=== PATIENT | female | born 1965 | race Hispanic/Latino ===

== ENCOUNTER 2018-10-11 11:15 | Emergency (ER) | payer BC ==
[~2018-10-11] VITALS: Ht 154.9 cm; Wt 65.8 kg
[~2018-10-11 11:15] MED LIST: CIPRO500 MG PO; IBUPROFEN200 MG PO; PANTOPRAZOLE SO40 MG PO; [UNRECOGNIZED DRUG - OTHER] PO
--- OUTSIDE RECORDS SUMMARY | 2018-10-11 11:18 | XMS REPORT | Summary of Care ---
Author Author [facility] [place] Organization [facility] [place] Address Unknown Phone Unavailable Encounter HQ Encntr_ellis(FIN) [id number] Date(s): 09/12/18 - 09/12/18 [facility] [place] [address] [place] [address] [phone] Discharge Disposition: Home or Self Care Attending Physician: Rico De Leon MD Referring Physician: Rico De Leon MD Vital Signs No data available for this section Problem List No data available for this section Allergies, Adverse Reactions, Alerts No data available for this section Medications No data available for this section Results No data available for this section Immunizations No data available for this section Procedures No data available for this section Social History No data available for this section Assessment and Plan No data available for this section
--- OUTSIDE RECORDS SUMMARY | 2018-10-11 11:18 | XMS REPORT | Continuity of Care Document ---
Author Author [facility] Interface Address Unknown Phone Unavailable Problems Problem Status Onset Date Classification Date Reported Comments Source V76.12 - SCREEN MAMMOGRA Active 08/02/2013 FRANK OPIR[facility] [place] Medications Medication Details Route Status Patient Instructions Ordering Provider Order Date Source Allergies, Adverse Reactions, Alerts Substance Category Reaction Severity Reaction type Status Date Reported Comments Source Immunizations Immunization Date Given Site Status Last Updated Comments Source Results Order Name Results Value Reference Range Date Interpretation Comments Source Fine Needle Asp 1st Les Uni US w Clip US Fine Needle Asp 1st Les Uni US w Clip US ULTRASOUND GUIDED FINE NEEDLE ASPIRATION LEFT BREAST WITH MARKING DEVICE INSERTED: 09/12/2018 CLINICAL: /R92.8 Other Abnormal And Inconclusive Findings On Diagnostic Imaging Of Breast. Correlation is made to exams dated: 09/02/2018 ultrasound, 09/02/2018 mammogram, 11/16/2014 mammogram, 08/02/2013 mammogram - [facility], and 02/19/2010 mammogram - [facility]. A fine needle aspiration was performed for the concerning lymph node located in the left axilla. This was described on the previous ultrasound report. The skin was prepped in the usual manner. Local anesthetic was administered to the access site. The abnormality was approached from the lateral aspect. A 21 gauge needle was percutaneously placed into the abnormality under ultrasound guidance. Once the needle was documented to be in the correct location, two specimens were obtained. A clip was inserted into the biopsy cavity. A sterile dressing was applied to the access site. Post procedure imaging demonstrates the clip at the targeted area. The specimens were sent to the laboratory for cytological analysis. IMPRESSION: FINE NEEDLE ASPIRATION MALIGNANT RECOMMENDATION:Fine needle aspiration of the lymph node in the left axilla was successful with no apparent post procedure complications. 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 Cytology results are concordant with imaging findings. A surgical consultation is recommended. These results were discussed with Radha at Dr. Shelley's office on 09/19/18. This exam was interpreted at [id number] for [facility] [place], [place] 15. Professional services are provided by the [facility] of Diagnostic Imaging. Fred Benavidez M.D. cm/:09/19/2018 10:15:11 Casket Trimmer(s): Fang Almaguer [facility] letter sent: Surgical Consult Post Bx 09/12/2018 - - Read by: Ranjeet Fenton MD Dictated Date/time: 09/19/18 10:15 Electronically Signed by: Ranjeet Fenton MD 09/19/18 10:15 FINAL REPORT [facility] [place] Breast BX Uni w Clip Primary Side US Breast BX Uni w Clip Primary Side US ULTRASOUND GUIDED BIOPSY LEFT BREAST WITH MARKING DEVICE INSERTED AND POST MAMMOGRAPHIC IMAGIN09/12/2018 CLINICAL: /R92.8 Other Abnormal And Inconclusive Findings On Diagnostic Imaging Of Breast. PATIENT CONSENT: I discussed the risks, benefits and alternatives for the procedure with the patient. Patient acknowledged understanding and informed written consent was obtained. A time out was performed to confirm patient identification and the location of the lesion. Correlation is made to exams dated: 09/02/2018 ultrasound, 09/02/2018 mammogram, 11/16/2014 mammogram, 08/02/2013 mammogram - [facility], and 02/19/2010 mammogram - [facility]. An ultrasound guided biopsy using real-time ultrasound was performed for the 1.7 cm x 1.3 cm x 1.3 cm indistinct irregular shaped mass located in the left breast at 1 o'clock posterior depth 7 cm from the nipple. The skin was prepped in the usual manner. Local anesthetic was administered to the access site. A small incision was made in the breast. The abnormality was approached from the later al aspect. A 14 gauge biopsy needle was placed adjacent to the abnormality under ultrasound guidance. Once the needle was documented to be in the correct location, four specimens were obtained using an Achieve automated firing device. A ribbon clip was inserted into the biopsy cavity. A skin closure strip was applied to the access site. Post procedure mammographic imaging demonstrates the clip at the targeted area. The specimens were sent to the laboratory for pathological analysis. IMPRESSION: ULTRASOUND GUIDED BIOPSY MALIGNANT RECOMMENDATION:Ultrasound guided biopsy of the 1.7 cm x 1.3 cm x 1.3 cm mass in the left breast at 1 o'clock posterior depth 7 cm from the nipple was successful with no apparent post procedure complications. 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 Pathology results are concordant with imaging findings. A surgical consultation is recommended. These results were d iscussed with Radha at Dr. Shelley's office on 09/19/18. This exam was interpreted at [id number] for FRANK [place], SL 15. Professional services are provided by the [facility] Diagnostic Imaging. Fred Benavidez M.D. cm/:09/19/2018 10:13:40 Casket Trimmer(s): Fang Almaguer [facility] letter sent: Surgical Consult Post Bx 09/12/2018 - - Read by: Ranjeet Fenton MD Dictated Date/time: 09/19/18 10:13 Electronically Signed by: Ranjeet Fenton MD 09/19/18 10:13 FINAL REPORT FRANK CHRISTIAN [place] Breast Complete Uni US Breast Complete Uni US COMPLETE ULTRASOUND OF LEFT BREAST AND AXILLA: 09/02/2018 CLINICAL: /N64.4 Mastodynia. COMPARISON:Comparison is made to exams dated: 09/02/2018 mammogram, 11/16/2014 mammogram, 08/02/2013 mammogram - [facility], and 02/19/2010 mammogram - [facility]. TECHNIQUE: Color flow and real-time ultrasound of the left breast four quadrants and axilla regions were performed on the areas of interest. FINDINGS: There is a 1.7 cm x 1.3 cm x 1.3 cm taller than wide irregular mass in the left breast at 1 o'clock posterior depth 7 cm from the nipple. This irregular mass is hypoechoic. This correlates as palpated and with mammography findings. Color flow imaging demonstrates that there is vascularity present. There are at least 6 abnormal axillary level I nodes with max cortical thickness measuring up to 1.9 cm. There is a single abnormal level II axillary node with cortical thickness measuring 0.5 cm. No lymphadenopathy in the axillary level III or internal mammary ell[place] basin is identified. IMPRESSION: HIGHLY SUGGESTIVE OF MALIGNANCY RECOMMENDATION:The 1.7 cm x 1.3 cm x 1.3 cm taller than wide irregular mass in the left breast is highly suggestive of malignancy. An ultrasound guided biopsy is recommended. This exam was interpreted at [id number] for FRANK MONTY [place] 15. Professional services are provided by the [facility] Division of Diagnostic Imaging. Fred Benavidez M.D. cm/penrad:09/02/2018 11:51:16 Casket Trimmer(s): Fang Almaguer [facility] letter sent: BI-RADS 4/5 Ultrasound BI-RADS: 5 Highly suggestive of malignancy 09/02/2018 - - Read by: Ranjeet Fenton MD Dictated Date/time: 09/02/18 11:51 Electronically Signed by: Ranjeet Fenton MD 09/02/18 11:51 FINAL REPORT [facility] [place] Breast Mammo Diag PONCHO incl CAD MA Breast Mammo Diag PONCHO incl CAD MA BILATERAL DIGITAL DIAGNOSTIC MAMMOGRAM WITH CAD: 09/02/2018 CLINICAL: N64.4 Mastodynia/N64.4 Mastodynia. Current study was evaluated with a Computer Aided Detection (CAD) system. COMPARISON:Comparison is made to exams dated: 11/16/2014 mammogram, 08/02/2013 mammogram - [facility], and 02/19/2010 mammogram - [facility]. TECHNIQUE: Mammographic views were obtained using digital acquisition. Current study was also evaluated with a Computer Aided Detection (CAD) system. FINDINGS: The tissue of both breasts is heterogeneously dense, which could obscure detection of small masses. There is a 1.6 cm round high density mass with a spiculated margin in the left breast at 1 o'clock posterior depth 9 cm from the nipple. No other significant masses, calcifications, or other findings are seen in either breast. IMPRESSION: INCOMPLETE: NEEDS ADDITIONAL IMAGING EVALUATION RECOMMENDATION:The 1.6 cm round high density mass in the left breast is indeterminate. An ultrasound is recommended. This exam was interpreted at [id number] for FRANK MONTY [place] 15. Professional services are provided by the [facility] Division of Diagnostic Imaging. Fred Benavidez M.D., cm/penrad:09/02/2018 10:48:33 Casket Trimmer(s): Hayley Bragg RT(R)(M), [facility] Mammogram BI-RADS: 0 Indeterminate 09/02/2018 - - Read by: Ranjeet Fenton MD Dictated Date/time: 09/02/18 10:48 Electronically Signed by: Ranjeet Fenton MD 09/02/18 10:48 FINAL [facility] [place] Bone Density-Dual Energy Absorptionmetry Bone Density-Dual Energy Absorptionmetry - Bone Density-Dual Energy Absorptionmetry BONE DENSITY EVALUATION: 11/16/2014 CLINICAL DATA: Post menopausal, clinical risk for osteoporosis and follow-up to previous study. COMPARISON: 02/19/2010 Right hip using Lunar Dual Energy X-Ray Absorptiometry from [facility] with reported normal fracture risk, BMD of 1.237g/cm2, T-score of 1.80, Z-score of 2.10 and 127.0% age-match bone mineralization. 02/19/2010 Left hip using Lunar Dual Energy X-Ray Absorptiometry from [facility] with reported normal fracture risk, BMD of 1.215g/cm2, T-score of 1.60, Z-score of 1.90 and 124.0% age-match bone mineralization. 02/19/2010 AP L1-L4 region of spine using Lunar Dual Energy X-Ray Absorptiometry from [facility] with reported normal fracture risk, BMD of 1.257g/cm2, T-score of 0.60, Z-score of 0.60 and 106.0% age-match bone mineralization. FINDINGS: Bone density evaluation was performed 11/16/2014 on the AP L1-L4 region of spine using Lunar Dual Energy X-Ray Absorptiometry. The BMD average for the exam is 1.142 g/cm2. The T-score is -0.30 and the Z-score is 0.20. These values indicate 102.0% for age-matched controls. Since the previous similar exam of 02/19/2010, there has been a -0.115 or -9.1% change in the BMD value which represents a slight interval decrease in bone density. This matches the World Health Organization's criteria for normal bone density and places the patient within normal limits of fracture risk. An additional bone density evaluation was performed 11/16/2014 on the right femur neck using Lunar Dual Energy X-Ray Absorptiometry. The BMD average for the exam is 1.015 g/cm2. The T-score is -0.20 and the Z-score is 0.70. These values indicate 110.0% for age-matched controls. This matches the World Health Organization's criteria for normal bone density and places the patient within normal limits of fracture risk. An additional bone density evaluation was performed 11/16/2014 on the right hip using Lunar Dual Energy X-Ray Absorptiometry. The BMD average for the exam is 1.108 g/cm2. The T-score is 0.80 and the Z-score is 1.30. These values indicate 117.0% for age-matched controls. Since the previous similar exam of 02/19/2010, there has been a -0.129 or -10.4% change in the BMD value which represents a slight interval decrease in bone density. This matches the World Health Organization's criteria for normal bone density and places the patient within normal limits of fracture risk. An additional bone density evaluation was performed 11/16/2014 on the left femur neck using Lunar Dual Energy X-Ray Absorptiometry. The BMD average for the exam is 0.978 g/cm2. The T-score is -0.40 and the Z-score is 0.40. These values indicate 106.0% for age-matched controls. This matches the World Health Organization's criteria for normal bone density and places the patient within normal limits of fracture risk. An additional bone density evaluation was performed 11/16/2014 on the left hip using Lunar Dual Energy X-Ray Absorptiometry. The BMD average for the exam is 1.183 g/cm2. The T-score is 1.40 and the Z-score is 1.90. These values indicate 125.0% for age-matched controls. Since the previous similar exam of 02/19/2010, there has been a -0.032 or -2.6% change in the BMD value which represents no significant interval change in bone density. This matches the World Health Organization's criteria for normal bone density and places the patient within normal limits of fracture risk. IMPRESSION: BONE DENSITY WITHIN NORMAL LIMITS Patient is at normal risk for fracture. Compared to BMD of prior exam, there has been no significant change in bone density. This exam was dictated and interpreted by [id number] for [facility] [place]. Buster hays/manjit:11/16/2014 13:14:45 Casket Trimmer: Meagan Jones [facility] [place] 11/16/2014 - - Read by: Buster Aguilar MD Dictated Date/time: 11/16/14 13:14 Electronically Signed by: Buster Aguilar MD 11/16/14 13:14 FINAL REPORT [facility] [place] Digital Mammo Screening [place] MA Digital Mammo Screening [place] MA - DIGITAL MAMMO SCREENING [place] MA BILATERAL DIGITAL SCREENING MAMMOGRAM WITH CAD: 11/16/2014 CLINICAL: Annual Screening. Current study was evaluated with a Computer Aided Detection (CAD) system. Comparison is made to exams dated: 02/19/2010 mammogram - [facility] and 08/02/2013 mammogram - [facility]. The tissue of both breasts is heterogeneously dense, which could obscure detection of small masses. No significant masses, calcifications, or other findings are seen in either breast. There has been no significant interval change. IMPRESSION: BENIGN There is no mammographic evidence of malignancy. A 1 year screening mammogram is recommended. Buster Aguilar M.D. [facility]/penrad:11/16/2014 12:51:44 Casket Trimmer: Naomy MESSER(R)(Silva), [facility] This exam was dictated and interpreted by [id number] for [facility] [place]. letter sent: Normal exam Mammogram BI-RADS: 2 Benign 11/16/2014 - - Read by: Buster Aguilar MD Dictated Date/time: 11/16/14 12:51 Electronically Signed by: Buster Aguilar MD 11/16/14 12:51 FINAL REPORT [facility] [place] Digital Mammo Screening [place] MA Digital Mammo Screening [place] MA - DIGITAL MAMMO SCREENING [place] MA BILATERAL DIGITAL SCREENING MAMMOGRAM WITH CAD: 08/02/2013 CLINICAL: Routine. Current study was evaluated with a Computer Aided Detection (CAD) system. Comparison is made to exam dated: 02/19/2010 mammogram - [facility]. There are scattered fibroglandular densities in both breasts. No significant masses, calcifications, or other findings are seen in either breast. There has been no significant interval change. IMPRESSION: NEGATIVE There is no mammographic evidence of malignancy. A screening mammogram in one year is recommended. Dr. Mahsa Bellamy D.O. /penrad:08/07/2013 10:50:01 Casket Trimmer: Arleen Hurt RT(Tisha)(M), [facility] This exam was dictated and interpreted by [id number] for FRANK In[place]. letter sent: Normal exam Mammogram BI-RADS: 1 Negative 08/02/2013 - - Read by: Mahsa Bellamy Dictated Date/time: 08/07/13 10:50 Electronically Signed by: Mahsa Bellamy , DO 08/07/13 10:50 FINAL REPORT [facility] [place] Vital Signs Vital Sign Value Date Comments Source Encounters Location Location Details Encounter Type Encounter Number Reason For Visit Attending Provider ADM Date DC Date Status Source OD [id number] V76.12 - SCREEN MAMMOGRA BRENDA CLIFTON 08/02/2013 Active [facility] [place] [facility] [place] [facility] [id number] Brenda Clifton 11/16/2014 11/17/2014 MH [facility] [place] [facility] [place] [facility] [id number] Rico Carrillo 09/02/2018 09/03/2018 [facility] [place] [facility] [place] [facility] [id number] Rico Shelley Ayestas 09/12/2018 09/13/2018 [facility] [place] Procedures Procedure Code Date Perfomer Comments Source
--- OUTSIDE RECORDS SUMMARY | 2018-10-11 11:18 | XMS REPORT ---
Author Author [facility] Address Unknown Phone Unavailable Care Team Providers Care Mercerizing Range Controller Name Role Phone Unavailable Unavailable Problems This patient has no known problems. Allergies, Adverse Reactions, Alerts This patient has no known allergies or adverse reactions. Medications This patient has no known medications. Results Test Description Test Time Test Comments Text Results Atomic Results Result Comments ANG, TUNNEL CATH CENTRAL INS W/PORT C 2018-10-05 11:02:00 Reason for Exam:->C50.912 C77.3 FINAL REPORT Procedure: Chest port placement. History: Breast cancer Operators: Rosy Conscious Sedation: Versed 2 mg, fentanyl 100 mcg, (Administered after informed consent was obtained) Vital signs were monitored throughout the procedure by a nurse, and remained stable. Physician intra-service time was 30 minutes. Total fluoroscopy time: 0.05min. Estimated dose reported as ( Ka, r): 0.1 mGy Technique: Informed written consent was obtained. The right neck and chest were prepped. All elements maximal sterile barrier technique was utilized for this procedure, including utilization of sterile scrub solution for skin prep, a large sterile sheet to cover the areas of the patient that were not prepped, and hand hygiene, mask, head covering, and sterile gown for performing radiologist and scrub technologist. Under direct real-time ultrasound guidance the right internal jugular vein was accessed with a micropuncture needle. A 5 Frisian sheath and dilator was placed. A 3 J-wire was then advanced and the access site was dilated. A 7 Frisian peel-away introducer sheath was then placed. The distal end of the 5 Frisian port catheter was then advanced through the peel-away and placed with tip under fluoroscopic control at the atriocaval junction. The proximal end of the catheter was then back tunneled on the anterior chest. A subcutaneous pocket was then made. The catheter was then attached to a single-lumen port which was placed into the pocket and anchored with 2 Monocryl sutures. The port flushed and aspirated easily following placement and was packed with 5cc of Heparin at 100U/cc (total dosage of 500U). The overlying skin was closed with interrupted subcuticular sutures. Steri-strips and dressing was applied. There are no immediate complications. The patient tolerated the procedure well and left the department in the same condition. Findings: 1. Inital ultrasound evaluation prior to port placement showed a patent and compressible right internal jugular vein. An ultrasound image was saved to PACS. 2. Spot radiograph following port placement revealed appropriate positioning with the tip projecting at the cavoatrial junction. No immediate pneumothorax identified. Impression: Successful placement of a single-lumen right-sided chest port using sonographic and fluoroscopic guidance and conscious sedation. The tip is satisfactorily positioned at the atriocaval junction. A "Power" port rated for power CT injections was placed. Signed: Pastor Rodriguez Verified Date/Time: 10/05/2018 11:02:50 Reading Location: [facility] Radiology Reading Room , CHEST, 1 VIEW, NON DEPT 2018-10-04 15:56:00 Reason for Exam:->C50.912 C77.3 FINAL REPORT Technique: Single view of the chest FINDINGS: Tip of right-sided chest port projects in the lower SVC/cavoatrial junction. No pneumothorax bilaterally. Lungs otherwise clear. Cardiac silhouette is within normal limits. No acute skeletal abnormality. Soft tissues are unremarkable. Signed: Pastor Rodriguez Verified Date/Time: 10/04/2018 15:56:45 Reading Location: [facility] Radiology Reading Room
--- OUTSIDE RECORDS SUMMARY | 2018-10-11 11:18 | XMS REPORT | Summary of Care ---
Author Author [facility] [place] Organization [facility] [place] Address Unknown Phone Unavailable Encounter HQ Andriantr_ellis(FIN) [id number] Date(s): 09/02/18 - 09/02/18 [facility] [place] [address] [place] [address] [phone] Discharge Disposition: Home or Self Care Attending [...]
--- OUTSIDE RECORDS SUMMARY | 2018-10-11 11:18 | XMS REPORT ---
Author Author Admin, [place] Organization [facility] Address [address] [place] [address] Phone Allergies, Adverse Reactions, Alerts Allergy Name Reaction Description Start Date Severity Status Provider SHRIMP Critical Active Mert Ni MD PENICILLIN Critical Active Mert Ni MD Conditions or Problems Problem Name Problem Code Onset Date Status Entry Date Provider Comment Standard Description Annotate Breast cancer 174.9 Active Mert Ni MD Malignant neoplasm of breast (female), unspecified Follow-up examination, vaginal Pap smear V76.2 Active Mert Ni MD Screening for malignant neoplasms of the cervix Medical Records Library Professor annual exam V72.3 Active Mert Ni MD Special investigations and examinations - Gynecological examination Medication List Medication Instructions Start Date Stop Date Generic Name NDC Status Provider Patient Instruction Drug Treatment Unknown - unknown Vital Signs Date Name Value Unit Range Description blood pressure, diastolic 68 mm[Hg] BP scott blood pressure, systolic 130 mm[Hg] BP sys height E&M 60 [in_us] Bdy height pulse rate E&M 89 /min Heart rate respiratory rate E&M 17 /min Resp rate weight E&M 154 [lb_av] Weight Measured Procedures Code Procedure Name Date Entry Date Standard Description CPT-53213 New Patient Well Exam (40 - 64 Yrs) - 66039 11:22:37 CDT
--- OUTSIDE RECORDS SUMMARY | 2018-10-11 11:18 | XMS REPORT | Clinical Summary ---
Author Author [facility] Address Unknown Phone Unavailable Care Team Providers Care Lock And Dam Operator Name Role Phone Maria Guadalupe Wade MD PCP Allergies Comments Active Allergy Reactions Severity Noted Date Ibuprofen Shortness Of High 10/04/2018 Breath Penicillins Shortness Of High 10/04/2018 Breath, Swelling Shrimp Rash Low 10/04/2018 Medications No known medications Active Problems Not on file Encounters Care Team Description Date Type Specialty Maria Guadalupe Wade MD Malignant neoplasm of left female breast, unspecified estrogen receptor status, unspecified site of breast (HCC); 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) 10/04/2018 Hospital Encounter Maria Guadalupe Wade MD Malignant neoplasm of left female breast, unspecified estrogen receptor status, unspecified site of breast (HCC); 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) 10/04/2018 Hospital Encounter Maria Guadalupe Wade MD Malignant neoplasm of left female breast, unspecified estrogen receptor status, unspecified site of breast (HCC); 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 Last Filed Vital Signs Time Taken Vital Sign Reading 10/04/2018 2:27 PM CDT Blood Pressure 126/67 10/04/2018 2:27 PM CDT Pulse 55 10/04/2018 1:51 PM CDT Temperature 37.4 C (99.4 F) 10/04/2018 2:27 PM CDT Respiratory Rate 27 10/04/2018 2:27 PM CDT Oxygen Saturation 100% - Inhaled Oxygen - Concentration - Weight - - Height - - Body Mass Index - Plan of Treatment Not on file Procedures Comments Procedure Name Priority Date/Time Associated Diagnosis CARDIAC CATH REPORT - 10/05/2018 SCAN 1:21 PM CDT XR CHEST 1 VIEW Routine 10/04/2018 Malignant neoplasm of PORTABLE/BEDSIDE 2:10 PM CDT left female breast, unspecified estrogen receptor status, unspecified site of breast (HCC) 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) IR PORT-A-CATH PLACEMENT Routine 10/04/2018 Malignant neoplasm of 1:30 PM CDT left female breast, unspecified estrogen receptor status, unspecified site of breast (HCC) 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 No pneumothorax bilaterally. Lungs otherwise clear. Cardiac silhouette is within normal limits. No acute skeletal abnormality. Soft tissues are unremarkable. Signed: Rajinder Rodriguez MD Report Verified Date/Time:10/04/2018 15:56:45 Reading Location: [facility] Radiology Reading Room Procedure Note Interface, External Ris In - 10/04/2018 3:58 PM CDT FINAL REPORT Technique: Single view of the chest FINDINGS: Tip of right-sided chest port projects in the lower SVC/cavoatrial junction. No pneumothorax bilaterally. Lungs otherwise clear. Cardiac silhouette is within normal limits. No acute skeletal abnormality. Soft tissues are unremarkable. Signed: Rajinder Rodriguez MD Report Verified Date/Time: 10/04/2018 15:56:45 Reading Location: [facility] Radiology Reading Room Performing Organization Address City/State/Zipcode Phone Number [facility] * IR Port-a-Cath Placement (10/04/2018 1:30 PM CDT) Narrative Performed At FINAL REPORT [facility] Procedure: Chest port placement. History: Breast cancer Operators: Rosy Conscious Sedation:Versed 2 mg, fentanyl 100 mcg, (Administered after informed consent was obtained) Vital signs were monitored throughout the procedure by a nurse, and remained stable. Physician intra-service time was 30 minutes. Total fluoroscopy time: 0.05min.Estimated dose reported as ( Ka, r):0.1 mGy Technique: Informed written consent was obtained. [...] and scrub technologist. Under direct real-time ultrasound guidancethe right internal jugular vein was accessed with a micropuncture needle. A 5 Ugandan sheath and dilator was placed. A 3 J-wire was then advanced and the access site was dilated. A 7 Ugandan peel-away introducer sheath was then placed. The distal end of the 5 Ugandan port catheter was then advanced through the peel-away and placed with tip under fluoroscopic control at the atriocaval junction. The proximal end of the catheter was then back tunneled on the anterior chest. A subcutaneous pocket was then made. The catheter was then attached to asingle-lumen port which was placed into the pocket and anchored with 2 Monocryl sutures. The port flushed and aspirated easily following placement and was packed with 5cc of Heparin at 100U/cc (total dosage of 500U). The overlying skin was closed with interrupted subcuticular sutures. Steri-strips anddressing was applied. There are no immediate complications. [...] for power CT injections was placed. Signed: Rajinder Rodriguez MD Report Verified Date/Time:10/05/2018 11:02:50 Reading Location: [facility] Radiology Reading Room Procedure Note Interface, External Ris In - 10/05/2018 11:05 AM CDT FINAL REPORT Procedure: Chest port placement. History: [...] accessed with a micropuncture needle. A 5 Ugandan sheath and dilator was placed. A 3 J-wire was then advanced and the access site was dilated. A 7 Ugandan peel-away introducer sheath was then placed. The distal end of the 5 Ugandan port catheter was then advanced through the [...] for power CT injections was placed. Signed: Rajinder Rodriguez MD Report Verified Date/Time: 10/05/2018 11:02:50 Reading Location: [facility] Radiology Reading Room Performing Organization Address City/State/Zipcode Phone Number [facility] * 2D Echo W/Doppler(CW/PW/Color) (10/04/2018 10:58 AM CDT) Ejection Fraction [facility] Narrative Performed At Transthoracic Echocardiography Report (TTE) [facility] ECHO [facility]ART[facility] Demographics [facility] Patient NameVIBRIA MALCOLM,Date of Study10/04/2018 KIERA Ascencio Gender Female Visit [id number] Race Unknown Number Number Date of 1965 Referring Physicia n Age 53 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 Physicia n Procedure Type of Study TTE procedure:2DECHO W DOPPLER(CW/PW/COLOR) (Routine) Indications:Cancer treatment protocol. Clinical History cancer Height: 60 inches Weight: 58.97 kg (130 lbs) BSA: 1.55 m^2 BMI: 25.39 kg/m^2 HR: 65 bpm Summary Normal LV systolic function with an estimated LVEF of 55-60%. Normal left ventricular diastolic filling dynamics. There appears to be no significant functional valvular abnormality seen. No pericardial effusion. No previous study to compare from. Signature Findings Technical Quality: Limited visualization due to poor acoustical window. Left Ventricle The left ventricle is normal in size, wall thickness, and contractility. Normal left ventricular diastolic filling dynamics. The visual ejection fraction was estimated 55-60 %. Left AtriumThe left atrium is not well visualized. The left atrium appears normal. Right VentricleThe right ventricular chamber size and systolic function are within normal limits. Right Atrium RA size is normal. Aortic Valve Normal AoV structure. There is no aortic stenosis. There is no aortic regurgitation. Mitral Valve Normal MV structure. No significant mitral regurgitation. Tricuspid ValveThe tricuspid valve is not well visualized. No evidence of tricuspid regurgitation. Estimated peak systolic PA pressure is cannot be determined due to inadequate TR velocity signal . Pulmonic Valve No evidence of pulmonary regurgitation. AortaAortic root size (SInus of Valsalva diameter) is normal . PericardiumNo pericardial effusion is visualized. IVC/SVC/PA/PV/PleuralThe inferior vena cava size is normal . Chambers/Structures Left Atrium LA Dimension: 2.76 cm Left Ventricle LVIDd: 3.77 cm LVEDV:60.83 ml LVIDs: 2.65 cm LVESV:25.88 ml LV Septum Diastolic: 1.11 cm LV Septum Systolic: 1.25 cm LV PW Diastolic: 1.19 cm LV FS: 29.7 % LV PW Systolic: 1.4 cm LVOT Diameter: 1.87 cm LVEF: 57.5 % Aorta Ao Root S of Irma.: 2.9 cm Doppler/Quantitative Measurements Mitral Valve MV Peak E-Wave: 0.89 m/sMV Peak A-Wave: 0.64 m/s P1/2t: 52.6 msecE/A Ratio: 1.4 Peak Velocity: 0.89 m/s Peak Gradient: 3.2 mmHg Mean Velocity: 0.38 m/s Deceleration Time: 230.3 msec Mean Gradient: 0.86 mmHgArea (continuity): 1.81 cm^2 MV Area (PHT): 4.19 cm^2 MV VTI: 29.62 cm MV Vitaly. Peak: Aortic Valve Peak Velocity: 1.55 m/sMean Velocity: 0.84 m/s Peak Gradient: 9.64 mmHg Mean Gradient: 3.62 mmHg AV Area (continuity): 1.86 cm^2 AV VTI: 28.69 cm Cusp Separation: 1.31 cm AV DVI: 0.68 LVOT Peak Velocity: 0.91 m/s Peak Gradient: 3.33 mmHg Mean Velocity: 0.55 m/s Mean Gradient: 1.52 mmHg LVOT Diameter: 1.87 cmLVOT VTI: 19.48 cm LVOT Area: 2.75 cm^2LVOT SV:53.47 ml LVOT CO: 3.48 l/min LVOT CI: 2.25 l/min/m^2 Pulmonic Valve Peak Velocity: 0.85 m/s Peak Gradient: 2.89 mmHg Procedure Note Interface, External Ris In - 10/04/2018 1:59 PM CDT Transthoracic Echocardiography Report (TTE) Demographics Patient Name SALAS MALCOLM, Date of Study 10/04/2018 KIERA Ascencio Gender Female Visit Number [id number] Race Unknown Room Number Number Date of 1965 Referring Physician 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 Physician Procedure Type of Study TTE procedure:2DECHO W DOPPLER(CW/PW/COLOR) (Routine) Indications:Cancer treatment protocol. Clinical History cancer Height: 60 inches Weight: 58.97 kg (130 lbs) BSA: 1.55 m^2 BMI: 25.39 kg/m^2 HR: 65 bpm Summary Normal LV systolic function with an estimated LVEF of 55-60%. Normal left ventricular diastolic filling dynamics. There appears to be no significant functional valvular abnormality seen. No pericardial effusion. No previous study to compare from. Signature Findings Technical Quality: Limited visualization due to poor acoustical window. Left Ventricle The left ventricle is normal in size, wall thickness, and contractility. Normal left ventricular diastolic filling dynamics. The visual ejection fraction was estimated 55-60 %. Left Atrium The left atrium is not well visualized. The left atrium appears normal. Right Ventricle The right ventricular chamber size and systolic function are within normal limits. Right Atrium RA size is normal. Aortic Valve Normal AoV structure. There is no aortic stenosis. There is no aortic regurgitation. Mitral Valve Normal MV structure. No significant mitral regurgitation. Tricuspid Valve The tricuspid valve is not well visualized. No evidence of tricuspid regurgitation. Estimated peak systolic PA pressure is cannot be determined due to inadequate TR velocity signal . Pulmonic Valve No evidence of pulmonary regurgitation. Aorta Aortic root size (SInus of Valsalva diameter) is normal . Pericardium No pericardial effusion is visualized. IVC/SVC/PA/PV/Pleural The inferior vena cava size is normal . Chambers/Structures Left Atrium LA Dimension: 2.76 cm Left Ventricle LVIDd: 3.77 cm LVEDV:60.83 ml LVIDs: 2.65 cm LVESV:25.88 ml LV Septum Diastolic: 1.11 cm LV Septum Systolic: 1.25 cm LV PW Diastolic: 1.19 cm LV FS: 29.7 % LV PW Systolic: 1.4 cm LVOT Diameter: 1.87 cm LVEF: 57.5 % Aorta Ao Root S of Irma.: 2.9 cm Doppler/Quantitative Measurements Mitral Valve MV Peak E-Wave: 0.89 m/s MV Peak A-Wave: 0.64 m/s P1/2t: 52.6 msec E/A Ratio: 1.4 Peak Velocity: 0.89 m/s Peak Gradient: 3.2 mmHg Mean Velocity: 0.38 m/s Deceleration Time: 230.3 msec Mean Gradient: 0.86 mmHg Area (continuity): 1.81 cm^2 MV Area (PHT): 4.19 cm^2 MV VTI: 29.62 cm MV Vitaly. Peak: Aortic Valve Peak Velocity: 1.55 m/s Mean Velocity: 0.84 m/s Peak Gradient: 9.64 mmHg Mean Gradient: 3.62 mmHg AV Area (continuity): 1.86 cm^2 AV VTI: 28.69 cm Cusp Separation: 1.31 cm AV DVI: 0.68 LVOT Peak Velocity: 0.91 m/s Peak Gradient: 3.33 mmHg Mean Velocity: 0.55 m/s Mean Gradient: 1.52 mmHg LVOT Diameter: 1.87 cm LVOT VTI: 19.48 cm LVOT Area: 2.75 cm^2 LVOT SV:53.47 ml LVOT CO: 3.48 l/min LVOT CI: 2.25 l/min/m^2 Pulmonic Valve Peak Velocity: 0.85 m/s Peak Gradient: 2.89 mmHg Performing Organization Address City/State/Zipcode Phone Number [facility] after 10/10/2017 Insurance Payer Benefit Subscriber ID Type Phone Address Plan / Group BLUE CROSS/BLUE SHIELD BCBS PPO xxxxxxxxxxxx PPO [phone] [address] [place] [address] CHOICE
--- OUTSIDE RECORDS SUMMARY | 2018-10-11 11:18 | XMS REPORT | Summary of Care ---
Author Organization Unknown Address Unknown Phone Unavailable Encounter [facility] Encntr_aliceci([facility]) [id number] Date(s): 11/16/14 - 11/16/14 [facility] Outpatient Imaging - [address] [id number] [phone] Discharge Disposition: Home Physician Attending: Mert Ni MD Vital Signs No data available for [...]
[2018-10-11 12:04] LABS: BILIRUBIN,URINE NEGATIVE (NEGATIVE); CLARITY,URINE SL CLOUDY (CLEAR); COLOR,URINE YELLOW (YELLOW); KETONES,URINE NEGATIVE (NEGATIVE); LEUKOCYTE ESTERASE ,URINE NEGATIVE (NEGATIVE); NITRITE,URINE NEGATIVE (NEGATIVE); PROTEIN,URINE DIPSTICK 1+ (NEGATIVE); URINE UROBILINOGEN 0.2 mg/dL (0.2 - 1)
[2018-10-11 12:11] LABS: WBC,URINE (MAN) 0-5 /HPF (0-5)
[2018-10-11 12:12] LABS: EPITHELIAL CELLS,URINE RARE /LPF; RENAL EPITHELIAL CELLS,URINE RARE
--- NOTE | 2018-10-11 12:37 | Diagnostic Imaging Report ---
Examination: Single AP view of the chest. COMPARISON: None. INDICATION: Shortness of breath, status post port placement IMPRESSION: 1. Lines and Tubes: Right upper chest Port-A-Cath, with catheter tip projecting in the mid SVC. 2. Lungs are grossly clear. No consolidation or effusion. No pneumothorax. 3. Cardiomediastinal silhouette is normal. Pulmonary vasculature is normal. 4. No acute bony abnormalities. Signed by: Dr. Jian Love M.D. on 10/11/2018 12:33 PM
[2018-10-11 12:56] LABS: BASOPHILS % 0.3 % (0.0-1.0); EOSINOPHILS # (AUTO) 0.2 (0.0-0.4); EOSINOPHILS % 2.7 % (0.0-6.0); HEMATOCRIT 38.1 % (34.2-44.1); HEMOGLOBIN 12.7 g/dL (12.0-16.0); LYMPHOCYTES # (AUTO) 0.9 (1.0-3.2); LYMPHOCYTES % 12.9 % (18.0-39.1); MEAN CORPUSCULAR HEMOGLOBIN 29.5 pg (28-32); MEAN CORPUSCULAR HGB CONC 33.3 g/dL (31-35); MEAN CORPUSCULAR VOLUME 88.6 fL (81-99); MONOCYTES # (AUTO) 0.4 (0.2-0.8); MONOCYTES % 6.4 % (4.4-11.3); NEUTROPHILS # (AUTO) 4.2 (2.1-6.9); NEUTROPHILS % 63.7 % (38.7-80.0); PLATELET COUNT 202 x10e3/uL (140-360); RED CELL DISTRIBUTION WIDTH 12.8 % (11.7-14.4)
[2018-10-11 13:15] LABS: ALANINE AMINOTRANSFERASE 35 IU/L (0-55); ALBUMIN 3.8 g/dL (3.5-5.0); ALBUMIN/GLOBULIN RATIO 1.2 (0.8-2.0); ALKALINE PHOSPHATASE 105 IU/L (40-150); AMYLASE 57 U/L (25-125); ANION GAP 11.3 mmol/L (8-16); BLOOD UREA NITROGEN 12 mg/dL (7-26); BUN/CREATININE RATIO 17 (6-25); CARBON DIOXIDE 26 mmol/L (22-29); CHLORIDE 96 mmol/L (98-107); CREATINE KINASE 71 IU/L (29-168); CREATININE, SERUM 0.71 mg/dL (0.57-1.11); EST GLOMERULAR FILTRATION RATE > 60 ML/MIN (60-); GLUCOSE 113 mg/dL (74-118); LIPASE 30 U/L (8-78); MAGNESIUM 2.2 MG/DL (1.3-2.1); POTASSIUM 3.3 mmol/L (3.5-5.1); SODIUM 130 mmol/L (136-145)
[2018-10-11] MEDS ORDERED: SODIUM CHLORIDE 0.9% 1000ML 1,000 ML IV SCH (14:15)
[2018-10-11] MEDS ORDERED: POTASSIUM CHLORIDE 20 MEQ TAB CR PO STA (14:15)
[2018-10-11] MEDS ORDERED: SODIUM CHLORIDE 0.9% 50ML 50 ML ONE (14:34)
[2018-10-11] MEDS ORDERED: IOPAMIDOL 370 MG/ML 200 ML INFUS..BTL INJ ONE (14:34)
--- NOTE | 2018-10-11 14:53 | Diagnostic Imaging Report ---
EXAMINATION: CT of the chest, abdomen and pelvis with contrast. TECHNIQUE: Spiral CT images of the chest, abdomen and pelvis were performed from the lung apices to the lesser trochanters after the intravenous administration of 100 cc of Isovue-370 and the oral administration of water. Coronal and sagittal reformatted images were obtained. Pulmonary embolus protocol was used for the chest CT. Routine protocol was used for the abdominal and pelvic CT COMPARISON: Chest x-ray same day CLINICAL HISTORY:Breast cancer, recent port placement, shortness of breath, right flank pain DISCUSSION: CHEST: Vasculature: The main pulmonary artery, right and left pulmonary arteries, and their visualized lobar and segmental branches are patent, without filling defect. There is no right ventricular dilatation or septal bowing. No ectasia or aneurysmal dilatation of the thoracic aorta. Scattered atherosclerotic coronary artery and great vessel calcifications. LINES/TUBES: Right internal jugular central venous port catheter tip terminates in the upper right atrium.. LUNGS AND AIRWAYS: 4 mm nodule lateral segment right middle lobe seen on series 3 image 71. Linear and reticular opacities in the dependent lower lobes compatible with subsegmental atelectasis. PLEURA: The pleural spaces are clear. HEART AND MEDIASTINUM: Visualized portions of the thyroid gland appear normal. Normal heart size. No pericardial effusion. LYMPH NODES: Mildly prominent left axillary lymph nodes, one of which has a metallic biopsy clip within. Large left retropectoral lymph node measures 1.7 cm short axis as seen on series 2 image 30. No hilar or mediastinal lymphadenopathy. No left internal mammary chain lymphadenopathy. BONES AND SOFT TISSUES: 1.5 cm mass in the lateral aspect of the left breast with a metallic marker clip. Port catheter reservoir lies in the subcutaneous tissues of the right upper chest. No adjacent fluid collection or subcutaneous gas. Osseous structures are discussed below. ABDOMEN/PELVIS: HEPATOBILIARY:Geographic hypoattenuation along the falciform ligament compatible with focal fatty infiltration. Otherwise no focal hepatic lesion or intrahepatic biliary ductal dilatation. The gallbladder has been removed with metallic clips in the gallbladder fossa. SPLEEN: No splenomegaly. PANCREAS: No focal masses or ductal dilatation. ADRENALS: No adrenal nodules. KIDNEYS/URETERS: Subcentimeter hypoattenuating lesion in the right kidney is too small to further characterize but likely to represent a small cyst. No hydronephrosis. No renal, ureteral, or bladder calculi. PELVIC ORGANS/BLADDER: Urinary bladder is unremarkable. Uterus is not identified and has presumably been removed. No adnexal mass. PERITONEUM/RETROPERITONEUM: No ascites. No pneumoperitoneum. LYMPH NODES: No pelvic sidewall, retroperitoneal, or mesenteric lymphadenopathy. VESSELS: Atherosclerotic calcification of the abdominal aorta, major branch vessels, and iliac arterial systems, without significant stenosis. Circumaortic left renal vein. Portal vein, splenic vein, and central superior mesenteric vein are patent. GI TRACT: The sigmoid colon, descending colon, and rectum are collapsed and poorly evaluated. The majority of the transverse colon is also collapsed. The appendix is normal. No small bowel dilatation to suggest obstruction. BONES AND SOFT TISSUES: Postsurgical changes of the anterior abdominal wall. Coarse calcification in the anterior peritoneal fat may represent fat necrosis or a calcified lymph node. IMPRESSION: No pulmonary embolus to the level of the segmental branch pulmonary arteries. No acute intra-abdominal or pelvic CT abnormalities. 1.5 cm left breast cancer with regional metastatic lymphadenopathy in the axilla and retropectoral space. No definite evidence of distant metastases. 4 mm nodule in the right middle lobe is likely infectious or inflammatory, though attention on follow-up cross-sectional imaging examinations is suggested. Right chest port catheter positioned as above. No abnormal fluid or gas collection adjacent to the port reservoir. Signed by: Dr. Naeem Lynch M.D. on 10/11/2018 2:49 PM
[2018-10-11 15:11] LABS: EOSINOPHILS % (MANUAL) 2 % (0-7); LYMPHOCYTES % (MANUAL) 16 % (19-48); METAMYELOCYTES % (MANUAL) 1 % (0-0); MONOCYTES % (MANUAL) 13 % (3.4-9.0); NEUTROPHILS % (MANUAL) 64 % (40-74)
[2018-10-11 15:12] LABS: PLATELET ESTIMATE ADEQUATE; PLATELET MORPHOLOGY COMMENT NORMAL; RBC MORPHOLOGY COMMENT NORMAL
[2018-10-11 15:52] VITALS: BP 112/71
== END 2018-10-11 16:04 | disposition home or self-care (01) ==
LOC: ER 11:15
DX: R10.11 Right upper quadrant pain (principal); R11.0 Nausea; K52.9 Noninfective gastroenteritis and colitis, unspecified; E87.6 Hypokalemia; E87.1 Hypo-osmolality and hyponatremia; K21.9 Gastro-esophageal reflux disease without esophagitis
CPT/HCPCS: 36415; 71045; 71260; 74177; 80053; 81001; 82150; 82550; 82553; 83690; 83735; 83880; 84484; 85025; 85730; 93005; 99284; J7030; Q9967

== ENCOUNTER 2018-12-09 17:31 | Emergency (ER) | payer BC ==
[~2018-12-09] VITALS: Ht 154.9 cm; Wt 65.8 kg
--- OUTSIDE RECORDS SUMMARY | 2018-12-09 17:33 | XMS REPORT | Clinical Summary ---
Author Author [facility] Address Unknown Phone Unavailable Care Team Providers Care Professor Of Radiology Name Role Phone Maria Guadalupe Wade MD [...] lymph node (HCC) 09/28/2018 Outside Orders after 12/08/2017 Social History Date Tobacco Use Types Packs/Day [...] neoplasm of brachial lymph node (HCC) after 12/08/2017 Results * CARDIAC CATH REPORT - SCAN (10/05/2018 1:21 PM CDT) Narrative Performed At * XR chest 1 view portable / bedside (10/04/2018 2:10 PM CDT) Specimen Narrative Performed At FINAL REPORT [employer] Technique: Single view of the chest FINDINGS: Tip of right-sided chest port projects in the lower SVC/cavoatrial junction. No pneumothorax bilaterally. Lungs otherwise clear. Cardiac silhouette is within normal limits. No acute skeletal abnormality. Soft tissues are unremarkable. Signed: Rajinder Rodriguez MD Report Verified Date/Time:10/04/2018 15:56:45 Reading Location: [facility] Radiology Reading Room Procedure Note Interface, External [...] Report Verified Date/Time: 10/04/2018 15:56:45 Reading Location: [facility] Radiology Reading Room Performing Organization Address City/State/Zipcode Phone Number [facility] * IR Port-a-Cath Placement (10/04/2018 1:30 PM CDT) Specimen Narrative Performed At FINAL REPORT [facility] Procedure: Chest port placement. History: Breast cancer [...] accessed with a micropuncture needle. A 5 Lithuanian sheath and dilator was placed. A 3 J-wire was then advanced and the access site was dilated. A 7 Lithuanian peel-away introducer sheath was then placed. The distal end of the 5 Lithuanian port catheter was then advanced through the [...] MD Report Verified Date/Time:10/05/2018 11:02:50 Reading Location: [facility] Radiology Reading Room Procedure Note Interface, External [...] accessed with a micropuncture needle. A 5 Lithuanian sheath and dilator was placed. A 3 J-wire was then advanced and the access site was dilated. A 7 Lithuanian peel-away introducer sheath was then placed. The distal end of the 5 Lithuanian port catheter was then advanced through the [...] Report Verified Date/Time: 10/05/2018 11:02:50 Reading Location: [facility] Radiology Reading Room Performing Organization Address City/State/Zipcode Phone Number [facility] * 2D Echo W/Doppler(CW/PW/Color) (10/04/2018 10:58 AM CDT) Ejection Fraction [facility] ECHO [facility] Specimen Narrative Performed At Transthoracic Echocardiography Report (TTE) [facility] Demographics [facility] Patient NameVIBRIA MLACOLM,Date of Study10/04/2018 KIERA Ascencio Gender Female Visit [id number] Race Unknown Number Number Date of 1965 [...] 10/04/2018 KIERA Ascencio Gender Female Visit Number [id number] Race Unknown Room Number Number Date of 1965 Referring Physician 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 Physician [...] Performing Organization Address City/State/Zipcode Phone Number [facility] after 12/08/2017 Insurance Payer Benefit Subscriber ID Type Phone Address Plan / Group BLUE CROSS/BLUE SHIELD BCBS PPO xxxxxxxxxxxx PPO [phone] [address] [place] [address] CHOICE
--- OUTSIDE RECORDS SUMMARY | 2018-12-09 17:34 | XMS REPORT ---
Author Author Admin, Lapel Organization [facility] Address [address] [place] [address] Phone Allergies, Adverse Reactions, Alerts Allergy Name [...] Screening for malignant neoplasms of the cervix Splitting Machine Tender annual exam V72.3 Active Mert Ni MD [...] Procedure Name Date Entry Date Standard Description CPT-22093 New Patient Well Exam (40 - 64 Yrs) - 51718 11:22:37 CDT
--- NOTE | 2018-12-09 18:25 | NUR ---
PT OFFERED CULTURALINK FOR TRANSLATION BUT STATES SHE IS OK WITH DAUGHTER TRANSLATING
--- NOTE | 2018-12-09 18:26 | NUR ---
PT STATES SHE HAS BREAST CA ON LEFT SIDE NO STICKS/BP ON LEFT SIDE LIMB ALERT PLACED ON PT LEFT WRIST
--- NOTE | 2018-12-09 18:33 | NUR ---
PT STATES DIFFICULTY SWALLOWING SINCE 1599 TODAY DENIES PAIN, TENDERNESS STATES SHE IS ABLE TO EAT WITHOUT ANY PROBLEMS BUT FEELS SORE AND DRY
--- NOTE | 2018-12-09 18:34 | NUR ---
DR DOWNING AT BEDSIDE FOR ASSESSMENT
[2018-12-09 19:03] LABS: HEMATOCRIT 35.3 % (34.2-44.1); HEMOGLOBIN 12.2 g/dL (12.0-16.0); LYMPHOCYTES # (AUTO) 0.5 (1.0-3.2); MEAN CORPUSCULAR HEMOGLOBIN 30.9 pg (28-32); MEAN CORPUSCULAR HGB CONC 34.6 g/dL (31-35); MEAN CORPUSCULAR VOLUME 89.4 fL (81-99); MONOCYTES # (AUTO) 0.4 (0.2-0.8); MONOCYTES % 0.8 % (4.4-11.3); NEUTROPHILS # (AUTO) 38.5 (2.1-6.9); NEUTROPHILS % 86.9 % (38.7-80.0); PLATELET COUNT 309 x10e3/uL (140-360); RED BLOOD COUNT 3.95 x10e6/uL (3.6-5.1); RED CELL DISTRIBUTION WIDTH 16.4 % (11.7-14.4)
[2018-12-09 19:05] LABS: INR 0.83; PARTIAL THROMBOPLASTIN TIME 24.7 seconds (23.8-35.5); PROTHROMBIN TIME 11.9 seconds (11.9-14.5)
[2018-12-09 19:13] LABS: ALANINE AMINOTRANSFERASE 24 IU/L (0-55); ALBUMIN/GLOBULIN RATIO 1.3 (0.8-2.0); ALKALINE PHOSPHATASE 115 IU/L (40-150); ANION GAP 13.9 mmol/L (8-16); BLOOD UREA NITROGEN 17 mg/dL (7-26); BUN/CREATININE RATIO 21 (6-25); CALCIUM 9.4 mg/dL (8.4-10.2); CARBON DIOXIDE 22 mmol/L (22-29); CHLORIDE 100 mmol/L (98-107); CREATINE KINASE 44 IU/L (29-168); CREATININE, SERUM 0.81 mg/dL (0.57-1.11); EST GLOMERULAR FILTRATION RATE > 60 ML/MIN (60-); GLUCOSE 151 mg/dL (74-118); POTASSIUM 3.9 mmol/L (3.5-5.1); SODIUM 132 mmol/L (136-145)
[2018-12-09 19:52] LABS: BILIRUBIN,URINE NEGATIVE (NEGATIVE); CLARITY,URINE SL CLOUDY (CLEAR); COLOR,URINE YELLOW (YELLOW); KETONES,URINE NEGATIVE (NEGATIVE); LEUKOCYTE ESTERASE ,URINE TRACE (NEGATIVE); NITRITE,URINE NEGATIVE (NEGATIVE); PROTEIN,URINE DIPSTICK NEGATIVE (NEGATIVE); URINE UROBILINOGEN 0.2 mg/dL (0.2 - 1)
--- NOTE | 2018-12-09 20:02 | Diagnostic Imaging Report ---
EXAMINATION: CHEST 2 VIEWS INDICATION: ^sob ^[id number] ^[id number] ^N COMPARISON: Chest radiograph 10/11/[address] chest 10/11/2018 FINDINGS: PA and lateral views TUBES and LINES: Right-sided chest port with tip overlying the caval junction. LUNGS: Lungs are well inflated. Lungs are clear. There is no evidence of pneumonia or pulmonary edema. PLEURA: No pleural effusion or pneumothorax. HEART AND MEDIASTINUM: The cardiomediastinal silhouette is unremarkable. BONES AND SOFT TISSUES: No acute osseous lesion. Soft tissues are unremarkable. UPPER ABDOMEN: No free air under the diaphragm. IMPRESSION: No acute thoracic abnormality. Signed by: Dr. Ligia Narayan M.D. on 12/09/2018 7:59 PM
[2018-12-09 20:06] LABS: EPITHELIAL CELLS,URINE FEW /LPF; RBC,URINE 0-5 /HPF (0-5); WBC,URINE (MAN) 0-5 /HPF (0-5)
[2018-12-09 20:31] LABS: METAMYELOCYTES % (MANUAL) 1 % (0-0); MONOCYTES % (MANUAL) 1 % (3.4-9.0); NEUTROPHILS % (MANUAL) 98 % (40-74); PLATELET ESTIMATE ADEQUATE; PLATELET MORPHOLOGY COMMENT NORMAL; RBC MORPHOLOGY COMMENT NORMAL
[2018-12-09 21:08] VITALS: BP 131/83
== END 2018-12-09 21:27 | disposition home or self-care (01) ==
LOC: ER 17:31
DX: R06.09 Other forms of dyspnea (principal); D72.829 Elevated white blood cell count, unspecified; F41.9 Anxiety disorder, unspecified; Z85.3 Personal history of malignant neoplasm of breast
CPT/HCPCS: 36415; 71046; 80053; 81001; 82550; 82553; 83880; 84484; 85025; 85610; 85730; 87086; 93005; 99284